=== PATIENT | female | born 1980 | race Caucasian/White ===

== ENCOUNTER → 2017-03-10 | Outpatient (CLI) | payer MEDICAID ==
[~2017-03-10] MED LIST: ACCUMIS25; BLOO1MIS29 XX; BLOOD GLUCOSE T1 TES; FURO1TAB60 PO; INFL1INJ56 IM; INSU31MI31; IPRA17I INH; LANC1MIS; LANTUS2P SQ; NOVORP2 SQ; ORTHTAB4 PO
[2017-03-10 10:19] LABS: HEMATOCRIT 36.9 % (35.0-46.0); MEAN CELL VOLUME 80.6 FL (80.0-100.0); MEAN CORPUSCULAR HEMOGLOBIN 27.6 PG (27.0-34.0); MEAN CORPUSCULAR HGB CONC 34.2 % (32.0-36.0); PLATELET COUNT 261 TH/MM3 (150-450); RED BLOOD COUNT 4.58 MIL/MM3 (4.00-5.30); RED CELL DISTRIBUTION WIDTH 13.9 % (11.6-17.2); REVIEW FLAG FINAL; WHITE BLOOD COUNT 6.3 TH/MM3 (4.0-11.0)
[2017-03-10 10:35] LABS: ANION GAP 10 MEQ/L (5-15); AST (GOT) 17 U/L (15-37); BICARBONATE 24.7 MEQ/L (21.0-32.0); BLOOD UREA NITROGEN 11 MG/DL (7-18); CHLORIDE 103 MEQ/L (98-107); GLOMERULAR FILTRATION RATE 95 ML/MIN (>89); GLUCOSE,FASTING 133 MG/DL (74-99); SODIUM (NA) 138 MEQ/L (136-145)
[2017-03-10 10:46] LABS: ALKALINE PHOSPHATASE 62 U/L (45-117); ALT (GPT) 33 U/L (10-53); HDL CHOLESTEROL 35.5 MG/DL (40.0-60.0); LDL CHOLESTEROL 117 MG/DL (0-99); TOTAL BILIRUBIN ADULT 0.2 MG/DL (0.2-1.0)
[2017-03-10 17:02] LABS: HEMOGLOBIN A1a 1.1 %; HEMOGLOBIN A1b 1.9 %; HEMOGLOBIN Ao 84.5 %; HEMOGLOBIN LA1C 2.2 %; HEMOGLOBIN P3 3.7 %
== END ==
LOC: CLAB 09:28
PROVIDERS: ATTEND Family Medicine Sports Medicine
DX: M79.89 Other specified soft tissue disorders (principal); K62.5 Hemorrhage of anus and rectum; E11.9 Type 2 diabetes mellitus without complications; Z71.3 Dietary counseling and surveillance
CPT/HCPCS: 36415; 80053; 80061; 83036; 84443; 85027

== ENCOUNTER → 2017-03-10 | Outpatient (CLI) | payer MEDICAID ==
--- NOTE | 2017-03-10 16:05 | ECHRPT ---
Indication: SHORTNESS OF BREATH CONCLUSIONS Normal left ventricular size and wall thickness. The left ventricular systolic function is normal wi th an estimated ejection fraction in the range of 60-65%. Left ventricular diastolic function parameters a re normal. Trace mitral valve regurgitation. Trace aortic valve regurgitation. There is trace tricuspid valve regurgitation. The estimated pulmonary arterial pressure is 33 mmHg. BP: / HR: Rhythm: Sinus MEASUREMENTS (Male / Female) Normal Values Technical Quality:Fair 2D ECHO LV Diastolic Diameter PLAX 4.6 cm 4.2 - 5.9 / 3.9 - 5.3 cm LV Systolic Diameter PLAX 3.1 cm IVS Diastolic Thickness 1.0 cm 0.6 - 1.0 / 0.6 - 0.9 cm LVPW Diastolic Thickness 1.0 cm 0.6 - 1.0 / 0.6 - 0.9 cm LV Relative Wall Thickness 0.4 RV Internal Dim ED PLAX 3.1 cm LVOT Diameter 1.8 cm LA Systolic Diameter LX 4.0 cm 3.0 - 4.0 / 2.7 - 3.8 cm LV Ejection Fraction MOD 4C 65.3 % LV Ejection Fraction 4C AL 65.9 % M-MODE Aortic Root Diameter MM 3.0 cm AV Cusp Separation MM 2.2 cm DOPPLER AV Peak Velocity 168.0 cm/s AV Peak Gradient 11.3 mmHg LVOT Peak Velocity 130.0 cm/s LVOT Peak Gradient 6.8 mmHg AV Area Cont Eq pk 2.0 cm MV Area PHT 3.2 cm Mitral E Point Velocity 90.3 cm/s Mitral A Point Velocity 53.8 cm/s Mitral E to A Ratio 1.7 LV E' Lateral Velocity 13.5 cm/s Mitral E to LV E' Lateral Ratio 6.7 LV E' Septal Velocity 7.3 cm/s Mitral E to LV E' Septal Ratio 12.4 TR Peak Velocity 238.0 cm/s TR Peak Gradient 22.7 mmHg Right Atrial Pressure 10.0 mmHg Pulmonary Artery Systolic Pressu 32.7 mmHg Right Ventricular Systolic Press 32.7 mmHg PV Peak Velocity 110.0 cm/s PV Peak Gradient 4.8 mmHg FINDINGS LEFT VENTRICLE Normal left ventricular size and wall thickness. The left ventricular systolic function is normal wi th an estimated ejection fraction in the range of 60-65%. Left ventricular diastolic function parameters a re normal. RIGHT VENTRICLE Normal right ventricular size and systolic function. LEFT ATRIUM The left atrial size is normal. RIGHT ATRIUM The right atrial size is normal. ATRIAL SEPTUM Normal atrial septal thickness without atrial level shunting by limited color doppler interrogation. AORTA The aortic root and proximal ascending aorta are normal in size on limited imaging. MITRAL VALVE Trace mitral valve regurgitation. AORTIC VALVE Trace aortic valve regurgitation. TRICUSPID VALVE There is trace tricuspid valve regurgitation. The estimated pulmonary arterial pressure is 32.7 mmHg. PULMONARY VALVE Trivial pulmonary valve regurgitation. VESSELS The inferior vena cava is normal in size. PERICARDIUM No pericardial effusion. Norberto Owusu MD, FACC (Electronically Signed) Final Date:10 March 2017 16:04
== END ==
LOC: HECH 08:36
PROVIDERS: ATTEND Family Medicine
DX: R06.02 Shortness of breath (principal); R60.0 Localized edema
CPT/HCPCS: 93306